=== PATIENT | male | born 1950 | race Caucasian/White ===

== ENCOUNTER 2018-04-24 11:39 | Emergency (ER) | payer MEDICARE, OTHER, SELFPAY ==
[2018-04-24 12:00] VITALS: BP 134/69; PULSE 89; RESP 17; TEMP 35.9; O2SAT 100
--- NOTE | 2018-04-24 12:10 | ED.FALL ---
HPI - Fall <Geetha Olea PA-C - Last Filed: 04/24/18 21:45> General Chief Complaint: Extremity Injury, Upper Stated Complaint: left side rib pain from overextension Time Seen by Provider: 04/24/18 12:10 Source: patient Mode of arrival: ambulatory Limitations: no limitations History of Present Illness HPI Narrative: This 67-year-old male complains of left sided rib pain after a twisting injury. He states that he was standing with 1 ft on the swim step of his boat and another on the day knee, when the boat moved and he wrenched his left side trying to grab the ladder and remain upright. He did not fall, states he just twisted awkwardly and felt discomfort in his ribs, especially if he coughs or sneezes. He denies any fall or any other injury. He denies dyspnea or wheeze. He requests x-rays because he is going on a month long trip soon and wants to know whether any fracture for sure Related Data Home Medications Medication Instructions Recorded Confirmed CoQ-10 200 mg PO DAILY 04/24/18 04/24/18 albuterol sulfate [ProAir HFA] 2 puff INHALATION Q4H PRN 04/24/18 04/24/18 amlodipine 10 mg PO DAILY 04/24/18 04/24/18 aspirin 81 mg PO DAILY 04/24/18 04/24/18 baclofen 20 mg PO QID 04/24/18 04/24/18 bupropion HCl 150 mg PO QAM 04/24/18 04/24/18 celecoxib [Celebrex] 100 mg PO QPM 04/24/18 04/24/18 cholecalciferol (vitamin D3) 1,000 unit PO DAILY 04/24/18 04/24/18 [Vitamin D3] citalopram 40 mg PO DAILY 04/24/18 04/24/18 cyanocobalamin (vitamin B-12) 250 mcg PO DAILY 04/24/18 04/24/18 [Vitamin B-12] rosuvastatin 10 mg PO DAILY 04/24/18 04/24/18 telmisartan 80 mg PO DAILY 04/24/18 04/24/18 Previous Rx's Medication Instructions Recorded lidocaine [Lidoderm] 2 patch TOP DAILY #30 each 04/24/18 oxycodone-acetaminophen [Percocet] 1 tab PO QID #10 tab 04/24/18 Allergies Allergy/AdvReac Type Severity Reaction Status Date / Time No Known Allergies Allergy Uncoded 05/21/17 11:48 Review of Systems <FADY Rodriguez Last Filed: 04/24/18 21:45> Review of Systems ROS Unobtainable: All systems reviewed & are unremarkable except as noted in HPI and below Exam <FADY Rodriguez Last Filed: 04/24/18 21:45> Narrative Exam Narrative: GENERAL APPEARANCE: Patient sitting comfortably, in no distress. HEENT: PERRL, EOMI, normal oropharynx NECK: Supple, no masses CHEST: Left anterior lateral ribs tender to palpation most at ribs 9 and 10 at the mid clavicular line, no sternal tenderness, no ecchymoses LUNGS: Clear to auscultation bilaterally. HEART: Rate and rhythm regular without murmur, normal S1 and S2, no S3 or S4. Initial Vital Signs Initial Vital Signs: Vital Signs Temperature 96.7 F L 04/24/18 12:00 Pulse Rate 89 04/24/18 12:00 Respiratory Rate 17 04/24/18 12:00 Blood Pressure 134/69 04/24/18 12:00 Pulse Oximetry 100 04/24/18 12:00 <Amalia Wood DO - Last Filed: 04/25/18 08:45> Initial Vital Signs Initial Vital Signs: Vital Signs Temperature 96.7 F L 04/24/18 12:00 Pulse Rate 89 04/24/18 12:00 Respiratory Rate 17 04/24/18 12:00 Blood Pressure 134/69 04/24/18 12:00 Pulse Oximetry 100 04/24/18 12:00 PFSH <FADY Rodriguez Last Filed: 04/24/18 21:45> Medical History Depression (Chronic) HTN (hypertension) (Chronic) Hyperlipidemia (Chronic) Osteoarthritis, multiple sites (Chronic) Surgical History S/p bilateral carpal tunnel release (Resolved) Status post right hip replacement (Resolved) Status post total knee replacement, right (Resolved) Social History Smoking Status: Never smoker Social History Smoking Status: Never smoker Course <FADY Rodriguez Last Filed: 04/24/18 21:45> Orders Ordered: Discontinued Medications Lidocaine (Lidoderm) 2 each TOP NOW ONE Stop: 04/24/18 12:27 Last Admin: 04/24/18 14:02 Dose: 2 each Oxycodone/Acetaminophen (Percocet 5/325) 2 tab PO NOW ONE Stop: 04/24/18 12:27 Last Admin: 04/24/18 13:35 Dose: 2 tab Vital Signs - 8 hr 04/24/18 14:10 Pulse Rate 78 Respiratory Rate 16 Blood Pressure 131/65 Pulse Oximetry 95 <Amalia Wood DO - Last Filed: 04/25/18 08:45> Orders Ordered: Discontinued Medications Lidocaine (Lidoderm) 2 each TOP NOW ONE Stop: 04/24/18 12:27 Last Admin: 04/24/18 14:02 Dose: 2 each Oxycodone/Acetaminophen (Percocet 5/325) 2 tab PO NOW ONE Stop: 04/24/18 12:27 Last Admin: 04/24/18 13:35 Dose: 2 tab Vital Signs - 8 hr 04/24/18 14:10 Pulse Rate 78 Respiratory Rate 16 Blood Pressure 131/65 Pulse Oximetry 95 MDM - Fall <Geetha Olea PA-C - Last Filed: 04/24/18 21:45> Imaging Data ribs: Radiologist's impression: [place] [address] XRay Report Signed Patient: Timi MoralesR#: [id number] : 9Acct:[id number] Age/Sex: 67 / MDate of Service: 04/24/18 Loc: ED Accession Number: [id number] Procedure: XR ribs LT min 3V w CXR1V Ordering Provider: Geetha Olea P.A-C PROCEDURE: XR RIBS LT MIN 3V W CXR1V INDICATIONS: pain after fall TECHNIQUE: 2 views of the left ribs were acquired, along with a single view chest. COMPARISON: None. FINDINGS: Surgical changes and devices: None. Bones and chest wall: There is a mildly displaced left seventh rib fracture. No suspicious bony lesions. Overlying soft tissues appear unremarkable. Lungs and pleura: There is left basilar atelectasis. No pleural effusions or pneumothorax. There is right hemidiaphragm eventration. Mediastinum: Mediastinal contours appear normal. Heart size is normal. IMPRESSION: Mildly displaced left seventh rib fracture. Dictated by: Chico Le M.D. on 04/24/2018 at 13:07 Approved by: Chico Le M.D. Discharge Plan Departure Patient Disposition: Home Clinical Impression: Left rib fracture Qualifiers: Encounter type: initial encounter Rib fracture type: single rib Fracture type: closed Qualified Code(s): S22.32XA - Fracture of one rib, left side, initial encounter for closed fracture Intercostal muscle strain Qualifiers: Encounter type: initial encounter Qualified Code(s): S29.011A - Strain of muscle and tendon of front wall of thorax, initial encounter Discharge Date/Time: 04/24/18 14:15 Interventions: ED Discharge Assessment Last Done: 04/24/18 14:10 Instructions: DI for Rib Fracture Activity Restrictions/Additional Instructions: Please return as we talked about if you have new shortness of breath or any acutely worsening symptoms. Otherwise, gentle activity such as walking is okay as you tolerate, avoid twisting and lifting and pressure on your ribs. Do the pillow hugging technique that we talked about several times daily and take breaths with your incentive spirometer that the respiratory therapist gave you. You can take the oxycodone/acetaminophen as needed but remember not to drive when taking it as it can make you sleepy. The dose I gave you is the higher dose with 10 mg of oxycodone in it, so remember that and do not take more than 1 tab at a time. Continue your Celebrex, but do not take other NSAIDs such as ibuprofen. You can also add the topical lidocaine patches for 12 hr daily. Please see your PCP on Friday to assess your progress and see whether you need to continue the oxycodone. Remember that the oxycodone/acetaminophen can make you constipated and to take a stool softener if you typically need 1 with this Prescriptions: New oxycodone-acetaminophen [Percocet] 10-325 mg tablet 1 tab PO QID Qty: 10 RF: 0 lidocaine [Lidoderm] 5 % adhesive patch,medicated 2 patch TOP DAILY Qty: 30 RF: 0 No Action citalopram 40 mg Tablet 40 mg PO DAILY RF: 0 cyanocobalamin (vitamin B-12) [Vitamin B-12] 250 mcg Tablet 250 mcg PO DAILY RF: 0 aspirin 81 mg Tablet,Delayed Release (Dr/Ec) 81 mg PO DAILY RF: 0 baclofen 20 mg Tablet 20 mg PO QID RF: 0 amlodipine 10 mg Tablet 10 mg PO DAILY RF: 0 telmisartan 80 mg Tablet 80 mg PO DAILY RF: 0 albuterol sulfate [ProAir HFA] 90 mcg/actuation Hfa Aerosol Inhaler 2 puff Inhalation Q4H PRN (Reason: Wheezing) RF: 0 celecoxib [Celebrex] 100 mg Capsule 100 mg PO QPM RF: 0 cholecalciferol (vitamin D3) [Vitamin D3] 1,000 unit Capsule 1,000 unit PO DAILY RF: 0 rosuvastatin 10 mg Tablet 10 mg PO DAILY RF: 0 bupropion HCl 150 mg Tablet Extended Release 24 Hr 150 mg PO QAM RF: 0 CoQ-10 200 mg PO DAILY RF: 0 Referrals: Ellen Mcgrath PA-C [Primary Care Provider] - <Amalia Wood DO - Last Filed: 04/25/18 08:45> Cosign ED Attending Cosignature Attestation: I was immediately available in the department for consultation. This documentation has been reviewed and I agree with assessment and plan. Supervised by Amalia Wood DO
--- NOTE | 2018-04-24 12:26 | DI.RAD.S_ITS ---
PROCEDURE: XR RIBS LT MIN 3V W CXR1V INDICATIONS: pain after fall TECHNIQUE: 2 views of the left ribs were acquired, along with a single view chest. COMPARISON: None. FINDINGS: Surgical changes and devices: None. Bones and chest wall: There is a mildly displaced left seventh rib fracture. No suspicious bony lesions. Overlying soft tissues appear unremarkable. Lungs and pleura: There is left basilar atelectasis. No pleural effusions or pneumothorax. There is right hemidiaphragm eventration. Mediastinum: Mediastinal contours appear normal. Heart size is normal. IMPRESSION: Mildly displaced left seventh rib fracture. Dictated by: Chico Le M.D. on 04/24/2018 at 13:07 Approved by: Chico Le M.D. on 04/24/2018 at 13:10
[2018-04-24] MEDS: OXYCODONE/ACETAMINOPHEN 5/325 TABLET 2 TAB PO (13:35)
[2018-04-24] MEDS: LIDOCAINE PATCH 1 EACH ADH..PATCH 2 EACH TOP (14:02)
[2018-04-24 14:10] VITALS: BP 131/65; PULSE 78; RESP 16; O2SAT 95
== END 2018-04-24 14:15 | disposition home or self-care (01) ==
PROVIDERS: Emergency Provider Internal Medicine; PCP Physician Assistant Medical
DX: S22.32XA Fracture of one rib, left side, initial encounter for closed fracture (principal); S29.011A Strain of muscle and tendon of front wall of thorax, initial encounter
CPT/HCPCS: 71101; 99282; 99283

== ENCOUNTER 2018-06-23 15:32 | Emergency (ER) | payer MEDICARE, OTHER, SELFPAY ==
[2018-06-23 15:41] VITALS: BP 108/63; PULSE 67; RESP 16; TEMP 36.5; O2SAT 95
--- NOTE | 2018-06-23 15:54 | DI.RAD.S_ITS ---
PROCEDURE: XR CHEST 1V INDICATIONS: chest pain TECHNIQUE: One view of the chest was acquired. COMPARISON: None. FINDINGS: Surgical changes and devices: None. Lungs and pleura: Pulmonary vascular congestion is seen. Mild pulmonary edema is also noted. No definite focal infiltrate. No pleural effusions or pneumothorax. Mediastinum: Mediastinal contours appear normal. Heart size is enlarged. Bones and chest wall: No suspicious bony lesions. Overlying soft tissues appear unremarkable. IMPRESSION: Cardiomegaly and congestion. No definite focal infiltrate. Dictated by: Owen Diallo M.D. on 06/23/2018 at 16:29 Approved by: Owen Diallo M.D. on 06/23/2018 at 16:29
[2018-06-23 16:22] LABS: Add Manual Diff / Slide Review NO; Basophils Absolute Auto 0 /uL (0-100); Basophils Percent Auto 0.5 % (0-2); Eosinophils Absolute Auto 100 /uL (0-450); Eosinophils Percent Auto 1.8 % (2-4); Hematocrit 38.7 % (41-53); Hemoglobin 12.9 g/dL (13.5-17.5); Lymphocytes Absolute Auto 1200 /uL (1100-4500); Lymphocytes Percent Auto 17.3 % (25-40); Mean Corpuscular HGB Conc 33.3 % (30-36); Mean Corpuscular Hemoglobin 30.9 PG (26-34); Mean Corpuscular Volume 92.6 fL (80-100); Monocytes Absolute Auto 500 /uL (0-900); Monocytes Percent Auto 6.7 % (3-14); Neutrophils Absolute Auto 5200 /uL (1500-7000); Neutrophils Percent Auto 73.7 % (50-75); Platelet Count 254 X10^3/uL (150-400); Red Blood Cell Count 4.18 X10^6/uL (4.5-5.9); Red Cell Distribution Width 13.9 % (11.6-14.8); White Blood Cell Count 7.1 X10^3/uL (4.5-11.0)
[2018-06-23 16:29] LABS: INR 1.1 (0.9-1.3); Prothrombin Time 12.4 SECONDS (10.1-12.7)
[2018-06-23 16:31] LABS: PTT Partial Thromboplastin Tim 32 SECONDS (26.4-36.2)
[2018-06-23 16:34] LABS: Alanine Aminotransferase 28 IU/L (21-72); Albumin 4.3 g/dL (3.5-5.0); Albumin Globulin Ratio 1.5 (1.0-2.8); Alkaline Phosphatase 134 U/L (38-126); Aspartate Aminotransferase 27 IU/L (17-59); Bilirubin Total 0.8 mg/dL (0.2-1.3); Blood Urea Nitrogen 24 mg/dL (9-20); Calcium 9.7 mg/dL (8.4-10.2); Carbon Dioxide 26 mmol/L (22-32); Chloride 102 mmol/L (98-107); Creatine Kinase 155 U/L (55-170); Estimated Glomerular Filt Rate > 60.0 mL/min (>60); Globulin 2.8 g/dL (1.7-4.1); Glucose 126 mg/dL (80-110); HEMOLYSIS < 15 (0-50); Lipase 53 U/L (23-300); Sodium 138 mmol/L (137-145); Total Protein 7.1 g/dL (6.3-8.2)
[2018-06-23 16:40] VITALS: BP 133/73; PULSE 69; RESP 19; O2SAT 98
[2018-06-23 16:45] LABS: Troponin I < 0.012 ng/mL (0.01-0.034)
[2018-06-23 16:49] LABS: CKMB % Relative Index 1.4 % (1.5-5.0); Creatine Kinase MB 2.22 ng/mL (<2.37)
[2018-06-23] MEDS: CYCLOBENZAPRINE 10 MG TABLET PO (17:07)
[2018-06-23 17:29] VITALS: BP 136/49; PULSE 66; RESP 15; O2SAT 99
--- NOTE | 2018-06-23 20:43 | ED_ITS ---
HPI - Chest Pain General Chief Complaint: Chest Pain Stated Complaint: RIB PAIN Time Seen by Provider: 06/23/18 16:34 Source: patient and family Mode of arrival: ambulatory Limitations: no limitations History of Present Illness HPI narrative: 67-year-old male nonsmoker presents with a chief complaint of sharp and stabbing left-sided chest wall pain that started while working in the [place] yesterday. He states he was bending and pulling a heavy object when he felt a sudden burning and tearing pain in his lateral ribs. His pain is sharp and stabbing and is worse with range of motion or deep breath. He denies any chest pressure, nausea, vomiting, diaphoresis, shortness of breath or worsening with exertion. He states he cracked a rib a few months ago and this feels very similar. MD complaint: chest pain Onset (ago): day(s) Duration: intermittent Onset: other Pain location: left chest Severity: moderate Quality: sharp Pain radiation: none Relieving factors: rest Exacerbating factors: inspiration and movement Treatments prior to arrival chest pain: none Related Data Home Medications Medication Instructions Recorded Confirmed CoQ-10 200 mg PO DAILY 04/24/18 04/24/18 albuterol sulfate [ProAir HFA] 2 puff INHALATION Q4H PRN 04/24/18 04/24/18 amlodipine 10 mg PO DAILY 04/24/18 04/24/18 aspirin 81 mg PO DAILY 04/24/18 04/24/18 baclofen 20 mg PO QID 04/24/18 04/24/18 bupropion HCl 150 mg PO QAM 04/24/18 04/24/18 celecoxib [Celebrex] 100 mg PO QPM 04/24/18 04/24/18 cholecalciferol (vitamin D3) 1,000 unit PO DAILY 04/24/18 04/24/18 [Vitamin D3] citalopram 40 mg PO DAILY 04/24/18 04/24/18 cyanocobalamin (vitamin B-12) 250 mcg PO DAILY 04/24/18 04/24/18 [Vitamin B-12] rosuvastatin 10 mg PO DAILY 04/24/18 04/24/18 telmisartan 80 mg PO DAILY 04/24/18 04/24/18 Previous Rx's Medication Instructions Recorded lidocaine [Lidoderm] 2 patch TOP DAILY #30 each 04/24/18 oxycodone-acetaminophen [Percocet] 1 tab PO QID #10 tab 04/24/18 cyclobenzaprine 10 mg PO TID PRN #14 tab 06/23/18 oxycodone 5 mg PO Q4-6H PRN #10 tab 06/23/18 Allergies Allergy/AdvReac Type Severity Reaction Status Date / Time No Known Allergies Allergy Uncoded 06/23/18 15:45 Review of Systems Constitutional Denies chills, Denies fever(s), Denies lethargy and Denies weakness Eyes Denies change in vision, Denies eye discharge, Denies irritation and Denies loss of vision ENT Ears, Nose, Mouth, and Throat: Denies change in voice, Denies neck pain and Denies sore throat Cardiovascular Reports chest pain, Denies irregular heart rhythm, Denies lightheadedness, Denies palpitations, Denies dyspnea, Denies dyspnea on exertion and Denies orthopnea Respiratory Denies cough, Denies dyspnea, Denies dyspnea on exertion and Denies wheezing Gastrointestinal Gastrointestinal: Denies abdominal pain, Denies change in bowel habits, Denies diarrhea, Denies nausea and Denies vomiting Genitourinary Denies hematuria, Denies flank pain, Denies urinary incontinence and Denies urinary urgency Musculoskeletal Denies neck pain Integumentary/Breasts Denies pruritus, Denies erythema, Denies rash and Denies wounds Neurologic Denies confusion, Denies loss of vision and Denies weakness Psychiatric Denies anxiety, Denies confusion, Denies depression, Denies homicidal ideation and Denies suicidal ideation Endocrine Denies palpitations Hematologic/Lymphatic Denies easy bruising Allergic/Immunologic Denies wheezing [facility] Medical History Depression (Chronic) HTN (hypertension) (Chronic) Hyperlipidemia (Chronic) Osteoarthritis, multiple sites (Chronic) Surgical History S/p bilateral carpal tunnel release (Resolved) Status post right hip replacement (Resolved) Status post total knee replacement, right (Resolved) Social History (Updated 04/24/18 @ 12:34 by Geetha Olea PA-C) Smoking Status: Never smoker Social History Smoking Status: Never smoker Exam Narrative Exam Narrative: GENERAL: 67-year-old male appears stated age, obviously uncomfortable and splinting his left-sided ribs HEAD: Atraumatic. Normocephalic. No temporal or scalp tenderness. EYES: Pupils equal round and reactive. Extraocular motions intact. No scleral icterus. No injection or drainage. ENT: Nose without bleeding, purulent drainage or septal hematoma. Throat without erythema, tonsillar hypertrophy or exudate. Uvula midline. Airway patent. NECK: Trachea midline. No JVD or lymphadenopathy. Supple, nontender, no meningeal signs. CARDIOVASCULAR: Regular rate and rhythm without murmurs, gallops, or rubs. Left anterior and lateral chest tender to palpation, no crepitance or abnormality noted other than reproducible pain RESPIRATORY: Clear to auscultation. Breath sounds equal bilaterally. No wheezes, rales, or rhonchi. GASTROINTESTINAL: Abdomen soft, non-tender, nondistended. No hepato- splenomegaly, or palpable masses. No guarding. EXTREMITIES: No clubbing, cyanosis, or edema. No joint tenderness, effusion, or edema noted. BACK: Nontender without deformity or crepitance. No flank tenderness. NEURO: AOx3. SKIN: No rash or erythema. Initial Vital Signs Initial Vital Signs: Vital Signs Temperature 97.7 F 06/23/18 15:41 Pulse Rate 67 06/23/18 15:41 Respiratory Rate 16 06/23/18 15:41 Blood Pressure 108/63 06/23/18 15:41 Pulse Oximetry 95 06/23/18 15:41 Scores HEART Score Heart Score history: Slightly Suspicious Heart Score EKG: Normal Heart Score Age: > or = 65 years old Heart Score risk factors: 1-2 risk factors Heart Score troponin: < or = to normal limit Heart Score Total: 3 Course Orders Ordered: ED Orders 06/23/18 15:54 XR chest 1V Stat EKG-12 Lead Stat 06/23/18 16:10 Complete Blood Count AUTO DIFF Stat Comprehensive Metabolic Panel Stat Lipase Stat Partial Thromboplastin Time Stat Prothrombin Time INR Stat Troponin & CK Cardiac Panel Stat Discontinued Medications Cyclobenzaprine HCl (Flexeril) 10 mg PO NOW ONE Stop: 06/23/18 16:46 Last Admin: 06/23/18 17:07 Dose: 10 mg Vital Signs - 8 hr 06/23/18 15:41 06/23/18 16:40 06/23/18 17:29 Temperature 97.7 F Pulse Rate 67 69 66 Respiratory Rate 16 19 15 Blood Pressure 108/63 Blood Pressure [Left Arm] 133/73 136/49 L Pulse Oximetry 95 98 99 MDM - Chest Pain Lab Data Result diagrams: 06/23/18 16:10 06/23/18 16:10 Lab Results 06/23/18 06/23/18 06/23/18 Range/Units 16:10 16:10 16:10 WBC 7.1 (4.5-11.0) X10^3/uL RBC 4.18 L (4.5-5.9) X10^6/uL Hgb 12.9 L (13.5-17.5) g/dL Hct 38.7 L (41-53) % MCV 92.6 (80-100) fL MCH 30.9 (26-34) PG MCHC 33.3 (30-36) % RDW 13.9 (11.6-14.8) % Plt Count 254 (150-400) X10^3/uL Neut % (Auto) 73.7 (50-75) % Lymph % (Auto) 17.3 L (25-40) % Rhea % (Auto) 6.7 (3-14) % Eos % (Auto) 1.8 L (2-4) % Baso % (Auto) 0.5 (0-2) % Neut # (Auto) 5200 (9720-5230) /uL Lymph # (Auto) 1200 (8500-5252) /uL Rhea # (Auto) 500 (0-900) /uL Eos # (Auto) 100 (0-450) /uL Baso # (Auto) 0 (0-100) /uL PT 12.4 (10.1-12.7) SECONDS INR 1.1 (0.9-1.3) APTT 32 (26.4-36.2) SECONDS Sodium 138 (137-145) mmol/L Potassium 4.0 (3.4-5.1) mmol/L Chloride 102 (98-107) mmol/L Carbon Dioxide 26 (22-32) mmol/L BUN 24 H (9-20) mg/dL Creatinine 1.00 (0.66-1.25) mg/dL Estimated GFR > 60.0 (>60) mL/min BUN/Creatinine Ratio 24.0 H (6-22) Glucose 126 H (80-110) mg/dL Calcium 9.7 (8.4-10.2) mg/dL Total Bilirubin 0.8 (0.2-1.3) mg/dL AST 27 (17-59) IU/L ALT 28 (21-72) IU/L Alkaline Phosphatase 134 H (38-126) U/L Total Creatine Kinase 155 (55-170) U/L CK-MB (CK-2) 2.22 (<2.37) ng/mL CK-MB (CK-2) Rel Index 1.4 L (1.5-5.0) % Troponin I < 0.012 (0.01-0.034) ng/mL Total Protein 7.1 (6.3-8.2) g/dL Albumin 4.3 (3.5-5.0) g/dL Globulin 2.8 (1.7-4.1) g/dL Albumin/Globulin Ratio 1.5 (1.0-2.8) Lipase 53 (23-300) U/L MDM Narrative Medical decision making narrative: Multiple causes of chest pain considered including NE, PE, pneumothorax, pneumonia, aortic dissection, and pleurisy. Patient reports no radiation, no diaphoresis, no provocation with exertion, and no vomiting. Pain is sharp, stabbing and completely reproducible along the left lateral ribs. EKG is nonischemic, troponin is normal Discharge Plan Departure Patient Disposition: Home Clinical Impression: Chest wall muscle strain Qualifiers: Encounter type: initial encounter Qualified Code(s): S29.011A - Strain of muscle and tendon of front wall of thorax, initial encounter Discharge Date/Time: 06/23/18 17:36 Interventions: ED Discharge Assessment Last Done: 06/23/18 17:30 Instructions: DI for Atypical Chest Pain Activity Restrictions/Additional Instructions: *You have been diagnosed with [atypical chest pain, chest wall strain] *What to do: *Take medications as directed *Follow up with your primary care provider in 2-3 days, call for an appointment. Let them know you were seen in the Emergency Department and that we ask that you be seen in follow up *Return to ER if you should have any new, worsening or concerning symptoms Prescriptions: New cyclobenzaprine 10 mg tablet 10 mg PO TID PRN (Reason: muscle spasm) Qty: 14 RF: 0 oxycodone 5 mg tablet 5 mg PO Q4-6H PRN (Reason: pain) Qty: 10 RF: 0 No Action citalopram 40 mg Tablet 40 mg PO DAILY RF: 0 cyanocobalamin (vitamin B-12) [Vitamin B-12] 250 mcg Tablet 250 mcg PO DAILY RF: 0 aspirin 81 mg Tablet,Delayed Release (Dr/Ec) 81 mg PO DAILY RF: 0 baclofen 20 mg Tablet 20 mg PO QID RF: 0 amlodipine 10 mg Tablet 10 mg PO DAILY RF: 0 telmisartan 80 mg Tablet 80 mg PO DAILY RF: 0 albuterol sulfate [ProAir HFA] 90 mcg/actuation Hfa Aerosol Inhaler 2 puff Inhalation Q4H PRN (Reason: Wheezing) RF: 0 celecoxib [Celebrex] 100 mg Capsule 100 mg PO QPM RF: 0 cholecalciferol (vitamin D3) [Vitamin D3] 1,000 unit Capsule 1,000 unit PO DAILY RF: 0 rosuvastatin 10 mg Tablet 10 mg PO DAILY RF: 0 bupropion HCl 150 mg Tablet Extended Release 24 Hr 150 mg PO QAM RF: 0 CoQ-10 200 mg PO DAILY RF: 0 oxycodone-acetaminophen [Percocet] 10-325 mg tablet 1 tab PO QID Qty: 10 RF: 0 lidocaine [Lidoderm] 5 % adhesive patch,medicated 2 patch TOP DAILY Qty: 30 RF: 0 Referrals: Ellen Mcgrath PA-C [Primary Care Provider] -
== END 2018-06-23 17:36 | disposition home or self-care (01) ==
PROVIDERS: Emergency Provider Emergency Medicine; PCP Physician Assistant Medical
DX: S29.011A Strain of muscle and tendon of front wall of thorax, initial encounter (principal); R07.9 Chest pain, unspecified
CPT/HCPCS: 36415; 36591; 71045; 80053; 82550; 82553; 83690; 84484; 85025; 85610; 85730; 93005; 93010; 99282; 99285

== ENCOUNTER 2018-08-27 15:10 | Emergency (ER) | payer MEDICARE, OTHER, SELFPAY ==
[2018-08-27 15:13] VITALS: BP 169/84; PULSE 88; RESP 15; TEMP 36.6; O2SAT 99; BMI 34.7
--- NOTE | 2018-08-27 17:17 | ED.BACK ---
HPI - Back Pain/Injury <Amalia Bronson, DIGITAL PROGRAM MANAGER-BC - Last Filed: 08/27/18 21:27> General Chief Complaint: Back Pain/Injury Stated Complaint: sent for abn MRI Time Seen by Provider: 08/27/18 17:07 Source: patient and family Mode of arrival: ambulatory Limitations: no limitations History of Present Illness HPI Narrative: The patient is a 68-year-old male never smoker presents with his for chief complaint of an abnormal MRI. 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 Devaughn Mcgrath took an MRI of his lower back. There was concern for cancer, so the patient presents to the emergency department. He denies any fevers nausea vomiting diarrhea. He denies any saddle anesthesia, incontinence of bowel or incontinence of bladder. He states that he has been having his lower back pain for over a month at this point time. He presents requesting scans to evaluate for cancer. Related Data Home Medications Medication Instructions Recorded Confirmed CoQ-10 200 mg PO DAILY 04/24/18 04/24/18 albuterol sulfate [ProAir HFA] 2 puff INHALATION Q4H PRN 04/24/18 04/24/18 amlodipine 10 mg PO DAILY 04/24/18 04/24/18 aspirin 81 mg PO DAILY 04/24/18 04/24/18 baclofen 20 mg PO QID 04/24/18 04/24/18 bupropion HCl 150 mg PO QAM 04/24/18 04/24/18 celecoxib [Celebrex] 100 mg PO QPM 04/24/18 04/24/18 cholecalciferol (vitamin D3) 1,000 unit PO DAILY 04/24/18 04/24/18 [Vitamin D3] citalopram 40 mg PO DAILY 04/24/18 04/24/18 cyanocobalamin (vitamin B-12) 250 mcg PO DAILY 04/24/18 04/24/18 [Vitamin B-12] rosuvastatin 10 mg PO DAILY 04/24/18 04/24/18 telmisartan 80 mg PO DAILY 04/24/18 08/27/18 Previous Rx's Medication Instructions Recorded lidocaine [Lidoderm] 2 patch TOP DAILY #30 each 04/24/18 oxycodone-acetaminophen [Percocet] 1 tab PO QID #10 tab 04/24/18 cyclobenzaprine 10 mg PO TID PRN #14 tab 06/23/18 oxycodone 5 mg PO Q4-6H PRN #10 tab 06/23/18 Allergies Allergy/AdvReac Type Severity Reaction Status Date / Time No Known Drug Allergies Allergy Verified 08/27/18 15:13 Review of Systems <JENNIFER Koenig - Last Filed: 08/27/18 21:27> Review of Systems GENERAL: Denies chills, fatigue, malaise, fever, sweats. HEENT: Denies sinus pain, ear pain, sore throat, difficulty swallowing, dizziness. RESPIRATORY: Denies dyspnea, cough, wheezing, hemoptysis, sputum. CARDIOVASCULAR: Denies chest pain, palpitations, orthopnea, edema, GASTROINTESTINAL: Denies nausea, vomiting, abdominal pain, diarrhea, constipation, melena. : Denies dysuria, frequency, incontinence, hematuria, urinary retention. MUSCULOSKELETAL: See HPI SKIN: Denies rash, skin lesions, or other NEUROLOGIC: Denies weakness, headache, numbness, change in speech, confusion, seizures, incoordination. PSYCHIATRIC: No concerning psychosocial issues. 12 point review of systems is negative except for those stated above PFSH <JENNIFER Koenig - Last Filed: 08/27/18 21:27> Medical History Depression (Chronic) HTN (hypertension) (Chronic) Hyperlipidemia (Chronic) Osteoarthritis, multiple sites (Chronic) Surgical History S/p bilateral carpal tunnel release (Resolved) Status post right hip replacement (Resolved) Status post total knee replacement, right (Resolved) Social History Smoking Status: Never smoker Social History Smoking Status: Never smoker Exam <JENNIFER Koenig - Last Filed: 08/27/18 21:27> Narrative Exam Narrative: GENERAL: Elderly male lying on stretcher in no acute distress HEAD: Atraumatic. Normocephalic. No temporal or scalp tenderness. EYES: Pupils equal round and reactive. Extraocular motions intact. No scleral icterus. No injection or drainage. ENT: Nose without bleeding, purulent drainage or septal hematoma. Throat without erythema, tonsillar hypertrophy or exudate. Uvula midline. Airway patent. NECK: Trachea midline. No JVD or lymphadenopathy. Supple, nontender, no meningeal signs. CARDIOVASCULAR: Regular rate and rhythm without murmurs, gallops, or rubs. RESPIRATORY: Clear to auscultation. Breath sounds equal bilaterally. No wheezes, rales, or rhonchi. No cough. No increased respiratory effort. No accessory muscle use. GASTROINTESTINAL: Abdomen soft, non-tender, nondistended. No hepato-splenomegaly, or palpable masses. No guarding. Active bowel sounds all 4 quadrants EXTREMITIES: No clubbing, cyanosis, or edema. No joint tenderness, effusion, or edema noted. BACK: No flank tenderness. Pain to palpation across lower back. NEURO: AOx3. SKIN: No rash or erythema. Initial Vital Signs Initial Vital Signs: Vital Signs Temperature 97.9 F 08/27/18 15:13 Pulse Rate 88 08/27/18 15:13 Respiratory Rate 15 08/27/18 15:13 Blood Pressure 169/84 H 08/27/18 15:13 Pulse Oximetry 99 08/27/18 15:13 <Jamil Read MD - Last Filed: 08/28/18 06:26> Initial Vital Signs Initial Vital Signs: Vital Signs Temperature 97.9 F 08/27/18 15:13 Pulse Rate 88 08/27/18 15:13 Respiratory Rate 15 08/27/18 15:13 Blood Pressure 169/84 H 08/27/18 15:13 Pulse Oximetry 99 08/27/18 15:13 Course <JAMARCUS Koenig-BC - Last Filed: 08/27/18 21:27> Course Narrative: I obtained MRI results from earlier today, which illustrate multiple expansile and heterogeneously hypointense and hyperintense lesions scattered through T12, sacrum bilateral iliac crest which were highly suggestive of extensive bony metastasis. Given the patient's imaging results, I spoke with cheyenne Charles who was on-call for the patient's primary care per Ellen KOROMA. She states she will urgently message the patient's PCPs nurse and have the patient follow up with his PCP tomorrow. Orders Ordered: Discontinued Medications Morphine Sulfate (Morphine) 4 mg IV NOW ONE Stop: 08/27/18 20:41 Last Admin: 08/27/18 21:08 Dose: 4 mg Vital Signs - 8 hr 08/27/18 15:13 08/27/18 18:57 Temperature 97.9 F Pulse Rate 88 81 Respiratory Rate 15 Blood Pressure 169/84 H Blood Pressure [Left Arm] 149/83 H Pulse Oximetry 99 97 <Jamil Read MD - Last Filed: 08/28/18 06:26> Orders Ordered: Discontinued Medications Morphine Sulfate (Morphine) 4 mg IV NOW ONE Stop: 08/27/18 20:41 Last Admin: 08/27/18 21:08 Dose: 4 mg Vital Signs - 8 hr 08/27/18 15:13 08/27/18 18:57 Temperature 97.9 F Pulse Rate 88 81 Respiratory Rate 15 Blood Pressure 169/84 H Blood Pressure [Left Arm] 149/83 H Pulse Oximetry 99 97 MDM - Back Pain/Injury <TERRY Koenig - Last Filed: 08/27/18 21:27> Lab Data Result diagrams: 08/27/18 17:20 08/27/18 17:20 Lab Results 08/27/18 08/27/18 Range/Units 17:20 17:20 WBC 7.1 (4.5-11.0) X10^3/uL RBC 3.94 L (4.5-5.9) X10^6/uL Hgb 12.0 L (13.5-17.5) g/dL Hct 36.4 L (41-53) % MCV 92.3 (80-100) fL MCH 30.5 (26-34) PG MCHC 33.0 (30-36) % RDW 14.5 (11.6-14.8) % Plt Count 263 (150-400) X10^3/uL Neut % (Auto) 81.6 H (50-75) % Lymph % (Auto) 10.3 L (25-40) % [place] % (Auto) 7.0 (3-14) % Eos % (Auto) 0.5 L (2-4) % Baso % (Auto) 0.6 (0-2) % Neut # (Auto) 5800 (8797-0148) /uL Lymph # (Auto) 700 L (2757-7595) /uL [place] # (Auto) 500 (0-900) /uL Eos # (Auto) 0 (0-450) /uL Baso # (Auto) 0 (0-100) /uL Sodium 136 L (137-145) mmol/L Potassium 4.0 (3.4-5.1) mmol/L Chloride 102 (98-107) mmol/L Carbon Dioxide 26 (22-32) mmol/L BUN 21 H (9-20) mg/dL Creatinine 1.00 (0.66-1.25) mg/dL Estimated GFR > 60.0 (>60) mL/min BUN/Creatinine Ratio 21.0 (6-22) Glucose 96 (80-110) mg/dL Calcium 9.3 (8.4-10.2) mg/dL Total Bilirubin 0.8 (0.2-1.3) mg/dL AST 21 (17-59) IU/L ALT 27 (21-72) IU/L Alkaline Phosphatase 166 H (38-126) U/L Total Protein 6.2 L (6.3-8.2) g/dL Albumin 3.5 (3.5-5.0) g/dL Globulin 2.7 (1.7-4.1) g/dL Albumin/Globulin Ratio 1.3 (1.0-2.8) Imaging Data CT chest abdomen pelvis: Radiologist's impression: Timi Morales 68 M [address] [place] [address] CT Scan Report Signed Patient: Timi MoralesR#: [id number] : 9Acct:[id number] Age/Sex: 68 / MDate of Service: 08/27/18 Loc: ED Accession Number: [id number] Procedure: CT chest abd pel w con [facility]ing [facility] CT CHEST ABD PEL W CON INDICATIONS: concern for mets on mri TECHNIQUE: After the administration of intravenous contrast, 5 mm thick sections acquired from the lung apices to the symphysis. 5 mm coronal and sagittal reformats were performed, with additional 7 mm MIP reformats through the lungs. For radiation dose reduction, the following was used: automated exposure control, adjustment of mA and/or kV according to patient size. COMPARISON: [facility], MR, MR LUMBAR SPINE WITHOUT CONTRAST, 08/27/2018, 8:01. FINDINGS: Image quality: Excellent. CHEST: Lungs and pleura: Multiple pulmonary nodules are identified within the left lung measuring up to 0.5 cm in greatest diameter. Mediastinum: There is bilateral hilar and mediastinal lymphadenopathy with the largest lymph node conglomerate measuring 2.8 x 4.3 cm in the right paratracheal region. There is calcified plaque of the coronary arteries and aorta. ABDOMEN: Solid organs: There is a 1.0 cm left intrahepatic cyst on axial image 57 of series 2. Gallbladder is unremarkable. The pancreas and spleen are unremarkable. There is a 2.8 cm right adrenal mass. There is a 7.4 x 6.6 x 8.8 cm enhancing soft tissue mass arising from the superior pole of the right kidney there is no hydronephrosis. There are multiple bilateral renal cysts with the largest measuring 7.9 cm and arising from the inferior pole of the left kidney. Peritoneum and bowel: Colonic diverticulosis without evidence of acute diverticulitis. Normal appendix seen on axial image 109 of series 2. Nodes and vessels: There is moderate calcified plaque of the abdominal aorta and branch vessels. There is diffuse retroperitoneal lymphadenopathy with the largest retroperitoneal lymph node measuring 2.7 x 2.5 cm anterior to the aorta and inferior vena cava on axial image 86 of series 2. PELVIS: Genitourinary: Bladder wall thickness is normal. Bones: Diffuse skeletal metastatic disease identified. There is a 7.9 cm expansile lytic lesion of the right scapula with pathologic fracture noted. There is a 3.3 cm lytic lesion within the left manubrium. There are multiple lesions with pathologic fracturing involving the left ribs. The largest expansile lesion involves the lateral left seventh rib and measures 5.9 x 4.0 cm in greatest diameter. Large expansile lesions are identified within the bilateral iliac wings, largest measuring 7.1 cm within the posterior right iliac wing. There is an expansile soft tissue lesion along the inferior endplate of T12, as seen on comparison MRI. There are moderate multilevel degenerative changes of the lumbar spine. No acute vertebral body fractures identified. There is a right total hip arthroplasty. IMPRESSION: 1. 8.8 cm enhancing mass arising from the superior pole of the right kidney, highly concerning for a renal cell carcinoma and possibly representing the primary malignancy. 2. Retroperitoneal, mediastinal, and bilateral hilar lymphadenopathy consistent with metastatic disease. 3. Diffuse skeletal metastatic disease, most prominently involving the bilateral ribs, right scapula, left manubrium, bilateral iliac wings, and T12 vertebral body. These metastatic lesions demonstrate soft tissue components that are expansile and result in cortical breakthrough/pathologic fractures, as seen with the right scapula, right iliac wing, and manubrium. Patient is at risk for additional pathologic fractures. 4. 2.8 cm right adrenal mass, most consistent with additional metastatic disease. Dictated by: Gabriel Whittington M.D. on 08/27/2018 at 19:46 Approved by: Gabriel Whittington M.D. on 08/27/2018 at 20:03 MDM Narrative Medical decision making narrative: The patient is a 68-year-old male who presents with a chief complaint of possible cancer related to an MRI earlier today. CT shows extensive likely metastatic disease. A follow-up plan was arranged, and I spoke with Erika Bullock, who is on-call for the patient's PCP. I discussed at length that he has a mass in his right kidney, right adrenal as well as lymphadenopathy and diffuse skeletal metastatic disease. I discussed that it is imperative that he follow up with his PCP for a an urgent consult for heme onc. The patient and his have no questions or concerns and state understanding. Discussed coming back to the ER for any acute concerns. <Jamil Read MD - Last Filed: 08/28/18 06:26> Lab Data Lab Results 08/27/18 08/27/18 Range/Units 17:20 17:20 WBC 7.1 (4.5-11.0) X10^3/uL RBC 3.94 L (4.5-5.9) X10^6/uL Hgb 12.0 L (13.5-17.5) g/dL Hct 36.4 L (41-53) % MCV 92.3 (80-100) fL MCH 30.5 (26-34) PG MCHC 33.0 (30-36) % RDW 14.5 (11.6-14.8) % Plt Count 263 (150-400) X10^3/uL Neut % (Auto) 81.6 H (50-75) % Lymph % (Auto) 10.3 L (25-40) % [place] % (Auto) 7.0 (3-14) % Eos % (Auto) 0.5 L (2-4) % Baso % (Auto) 0.6 (0-2) % Neut # (Auto) 5800 (8014-0928) /uL Lymph # (Auto) 700 L (6869-2265) /uL [place] # (Auto) 500 (0-900) /uL Eos # (Auto) 0 (0-450) /uL Baso # (Auto) 0 (0-100) /uL Sodium 136 L (137-145) mmol/L Potassium 4.0 (3.4-5.1) mmol/L Chloride 102 (98-107) mmol/L Carbon Dioxide 26 (22-32) mmol/L BUN 21 H (9-20) mg/dL Creatinine 1.00 (0.66-1.25) mg/dL Estimated GFR > 60.0 (>60) mL/min BUN/Creatinine Ratio 21.0 (6-22) Glucose 96 (80-110) mg/dL Calcium 9.3 (8.4-10.2) mg/dL Total Bilirubin 0.8 (0.2-1.3) mg/dL AST 21 (17-59) IU/L ALT 27 (21-72) IU/L Alkaline Phosphatase 166 H (38-126) U/L Total Protein 6.2 L (6.3-8.2) g/dL Albumin 3.5 (3.5-5.0) g/dL Globulin 2.7 (1.7-4.1) g/dL Albumin/Globulin Ratio 1.3 (1.0-2.8) Discharge Plan Departure Patient Disposition: Home Clinical Impression: Mass of kidney, Adrenal mass, right, Disease of skeletal system Discharge Date/Time: 08/27/18 21:51 Interventions: ED Discharge Assessment Last Done: 08/27/18 21:50 Activity Restrictions/Additional Instructions: Today we did a CT of your chest abdomen and pelvis due to concerning findings on your MRI. This CT shows a right kidney mass as well as a right adrenal mass. These are highly concerning for possible cancer and metastatic disease. There is also concern for metastatic disease to your skeleton. I spoke with Erika Bullock, who was on-call for Ellen Mcgrath. They would like you to call their office tomorrow. Please come back to the emergency department for any acute concerns. Prescriptions: No Action citalopram 40 mg Tablet 40 mg PO DAILY RF: 0 cyanocobalamin (vitamin B-12) [Vitamin B-12] 250 mcg Tablet 250 mcg PO DAILY RF: 0 aspirin 81 mg Tablet,Delayed Release (Dr/Ec) 81 mg PO DAILY RF: 0 baclofen 20 mg Tablet 20 mg PO QID RF: 0 amlodipine 10 mg Tablet 10 mg PO DAILY RF: 0 telmisartan 80 mg Tablet 80 mg PO DAILY RF: 0 albuterol sulfate [ProAir HFA] 90 mcg/actuation Hfa Aerosol Inhaler 2 puff Inhalation Q4H PRN (Reason: Wheezing) RF: 0 celecoxib [Celebrex] 100 mg Capsule 100 mg PO QPM RF: 0 cholecalciferol (vitamin D3) [Vitamin D3] 1,000 unit Capsule 1,000 unit PO DAILY RF: 0 rosuvastatin 10 mg Tablet 10 mg PO DAILY RF: 0 bupropion HCl 150 mg Tablet Extended Release 24 Hr 150 mg PO QAM RF: 0 CoQ-10 200 mg PO DAILY RF: 0 oxycodone-acetaminophen [Percocet] 10-325 mg tablet 1 tab PO QID Qty: 10 RF: 0 lidocaine [Lidoderm] 5 % adhesive patch,medicated 2 patch TOP DAILY Qty: 30 RF: 0 cyclobenzaprine 10 mg tablet 10 mg PO TID PRN (Reason: muscle spasm) Qty: 14 RF: 0 oxycodone 5 mg tablet 5 mg PO Q4-6H PRN (Reason: pain) Qty: 10 RF: 0 Referrals: Ellen Mcgrath PA-C [Primary Care Provider] - <Jamil Read MD - Last Filed: 08/28/18 06:26> [facility] I was present in the ER at the time this patient's care. I was available for consultation or to see the patient directly if needed. I agree with evaluation, the assessment and treatment plan.
[2018-08-27 17:26] LABS: Add Manual Diff / Slide Review NO; Basophils Absolute Auto 0 /uL (0-100); Basophils Percent Auto 0.6 % (0-2); Eosinophils Absolute Auto 0 /uL (0-450); Eosinophils Percent Auto 0.5 % (2-4); Hematocrit 36.4 % (41-53); Lymphocytes Absolute Auto 700 /uL (1100-4500); Lymphocytes Percent Auto 10.3 % (25-40); Mean Corpuscular Hemoglobin 30.5 PG (26-34); Mean Corpuscular Volume 92.3 fL (80-100); Monocytes Absolute Auto 500 /uL (0-900); Neutrophils Absolute Auto 5800 /uL (1500-7000); Neutrophils Percent Auto 81.6 % (50-75); Platelet Count 263 X10^3/uL (150-400); Red Blood Cell Count 3.94 X10^6/uL (4.5-5.9); Red Cell Distribution Width 14.5 % (11.6-14.8); White Blood Cell Count 7.1 X10^3/uL (4.5-11.0)
[2018-08-27 17:37] LABS: Alanine Aminotransferase 27 IU/L (21-72); Albumin 3.5 g/dL (3.5-5.0); Albumin Globulin Ratio 1.3 (1.0-2.8); Alkaline Phosphatase 166 U/L (38-126); Aspartate Aminotransferase 21 IU/L (17-59); Bilirubin Total 0.8 mg/dL (0.2-1.3); Blood Urea Nitrogen 21 mg/dL (9-20); Calcium 9.3 mg/dL (8.4-10.2); Carbon Dioxide 26 mmol/L (22-32); Chloride 102 mmol/L (98-107); Estimated Glomerular Filt Rate > 60.0 mL/min (>60); Globulin 2.7 g/dL (1.7-4.1); Glucose 96 mg/dL (80-110); HEMOLYSIS < 15 (0-50); Sodium 136 mmol/L (137-145); Total Protein 6.2 g/dL (6.3-8.2)
--- NOTE | 2018-08-27 17:40 | DI.CT.S_ITS ---
PROCEDURE: CT CHEST ABD PEL W CON INDICATIONS: concern for mets on mri TECHNIQUE: After the administration of intravenous contrast, 5 mm thick sections acquired from the lung apices to the symphysis. 5 mm coronal and sagittal reformats were performed, with additional 7 mm MIP reformats through the lungs. For radiation dose reduction, the following was used: automated exposure control, adjustment of mA and/or kV according to patient size. COMPARISON: [facility], MR, MR LUMBAR SPINE WITHOUT CONTRAST, 08/27/2018, 8:01. FINDINGS: Image quality: Excellent. CHEST: Lungs and pleura: Multiple pulmonary nodules are identified within the left lung measuring up to 0.5 cm in greatest diameter. Mediastinum: There is bilateral hilar and mediastinal lymphadenopathy with the largest lymph node conglomerate measuring 2.8 x 4.3 cm in the right paratracheal region. There is calcified plaque of the coronary arteries and aorta. ABDOMEN: Solid organs: There is a 1.0 cm left intrahepatic cyst on axial image 57 of series 2. Gallbladder is unremarkable. The pancreas and spleen are unremarkable. There is a 2.8 cm right adrenal mass. There is a 7.4 x 6.6 x 8.8 cm enhancing soft tissue mass arising from the superior pole of the right kidney there is no hydronephrosis. There are multiple bilateral renal cysts with the largest measuring 7.9 cm and arising from the inferior pole of the left kidney. Peritoneum and bowel: Colonic diverticulosis without evidence of acute diverticulitis. Normal appendix seen on axial image 109 of series 2. Nodes and vessels: There is moderate calcified plaque of the abdominal aorta and branch vessels. There is diffuse retroperitoneal lymphadenopathy with the largest retroperitoneal lymph node measuring 2.7 x 2.5 cm anterior to the aorta and inferior vena cava on axial image 86 of series 2. PELVIS: Genitourinary: Bladder wall thickness is normal. Bones: Diffuse skeletal metastatic disease identified. There is a 7.9 cm expansile lytic lesion of the right scapula with pathologic fracture noted. There is a 3.3 cm lytic lesion within the left manubrium. There are multiple lesions with pathologic fracturing involving the left ribs. The largest expansile lesion involves the lateral left seventh rib and measures 5.9 x 4.0 cm in greatest diameter. Large expansile lesions are identified within the bilateral iliac wings, largest measuring 7.1 cm within the posterior right iliac wing. There is an expansile soft tissue lesion along the inferior endplate of T12, as seen on comparison MRI. There are moderate multilevel degenerative changes of the lumbar spine. No acute vertebral body fractures identified. There is a right total hip arthroplasty. IMPRESSION: 1. 8.8 cm enhancing mass arising from the superior pole of the right kidney, highly concerning for a renal cell carcinoma and possibly representing the primary malignancy. 2. Retroperitoneal, mediastinal, and bilateral hilar lymphadenopathy consistent with metastatic disease. 3. Diffuse skeletal metastatic disease, most prominently involving the bilateral ribs, right scapula, left manubrium, bilateral iliac wings, and T12 vertebral body. These metastatic lesions demonstrate soft tissue components that are expansile and result in cortical breakthrough/pathologic fractures, as seen with the right scapula, right iliac wing, and manubrium. Patient is at risk for additional pathologic fractures. 4. 2.8 cm right adrenal mass, most consistent with additional metastatic disease. Dictated by: Gabriel Whittington M.D. on 08/27/2018 at 19:46 Approved by: Gabriel Whittington M.D. on 08/27/2018 at 20:03
[2018-08-27 18:57] VITALS: BP 149/83; PULSE 81; O2SAT 97
[2018-08-27] MEDS: MORPHINE 4 MG/ML INJ IV (21:08)
[2018-08-27 21:39] VITALS: BP 134/70; PULSE 74; RESP 16; O2SAT 94
== END 2018-08-27 21:51 | disposition home or self-care (01) ==
PROVIDERS: Emergency Provider Nurse Practitioner Family; Family Provider Physician Assistant Medical; PCP Physician Assistant Medical
DX: N28.89 Other specified disorders of kidney and ureter (principal); E27.8 Other specified disorders of adrenal gland; M89.9 Disorder of bone, unspecified
CPT/HCPCS: 36591; 71260; 74177; 80053; 85025; 96374; 99282; 99284; J2270; Q9967

== ENCOUNTER 2018-10-02 15:14 | Emergency (ER) | payer MEDICARE, OTHER, SELFPAY ==
[2018-10-02 15:28] VITALS: BP 120/55; PULSE 76; RESP 16; TEMP 36.3; O2SAT 96; BMI 35.0
--- NOTE | 2018-10-02 17:01 | ED_ITS ---
HPI - Anxiety General Chief Complaint: Anxiety Stated Complaint: LIGHT HEADENESS/ANXIETY/CLAUSTROPHOBIA Time Seen by Provider: 10/02/18 16:42 Source: patient Mode of arrival: ambulatory Limitations: no limitations History of Present Illness HPI narrative: 68-year-old male comes to the emergency department with complaint of anxiety. Patient was getting his radiation treatment. This is for renal mass along with several metastases. This includes his abdomen and his chest. Today when they were moving the radiation from his abdomen up to his chest he got very anxious and felt very claustrophobic. She has had problems with claustrophobia the past. 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 He states he does not tolerate closed MRI's, but will tolerate open MRIs. Today he had to stop the last portion of his radiation a little bit early case he just was too anxious. Afterwards he was able to calm down but it took a while so he had come here to be evaluated because he did not feel like he was coming down initially. He feels much better now he feels calm. Patient does not normally take anything for anxiety or claustrophobia. He now does have 1 additional treatment because he ended this 1 early. He denies any other symptoms today. Related Data Home Medications Medication Instructions Recorded Confirmed CoQ-10 200 mg PO DAILY 04/24/18 04/24/18 albuterol sulfate [ProAir HFA] 2 puff INHALATION Q4H PRN 04/24/18 04/24/18 amlodipine 10 mg PO DAILY 04/24/18 04/24/18 aspirin 81 mg PO DAILY 04/24/18 04/24/18 baclofen 20 mg PO QID 04/24/18 04/24/18 bupropion HCl 150 mg PO QAM 04/24/18 04/24/18 celecoxib [Celebrex] 100 mg PO QPM 04/24/18 04/24/18 cholecalciferol (vitamin D3) 1,000 unit PO DAILY 04/24/18 04/24/18 [Vitamin D3] citalopram 40 mg PO DAILY 04/24/18 04/24/18 cyanocobalamin (vitamin B-12) 250 mcg PO DAILY 04/24/18 04/24/18 [Vitamin B-12] rosuvastatin 10 mg PO DAILY 04/24/18 04/24/18 telmisartan 80 mg PO DAILY 04/24/18 10/02/18 fentanyl 50 mcg TOPICAL Q3DX5 10/02/18 10/02/18 oxycodone 10 mg PO Q4H PRN 10/02/18 10/02/18 Previous Rx's Medication Instructions Recorded lidocaine [Lidoderm] 2 patch TOP DAILY #30 each 04/24/18 cyclobenzaprine 10 mg PO TID PRN #14 tab 06/23/18 alprazolam [Xanax] 0.5 mg PO DAILY PRN #2 tab 10/02/18 Allergies Allergy/AdvReac Type Severity Reaction Status Date / Time No Known Drug Allergies Allergy Verified 10/02/18 15:28 Review of Systems Review of Systems ROS Unobtainable: All systems reviewed & are unremarkable except as noted in HPI and below Psychiatric Reports anxiety PFSH Medical History Depression (Chronic) HTN (hypertension) (Chronic) Hyperlipidemia (Chronic) Osteoarthritis, multiple sites (Chronic) Surgical History S/p bilateral carpal tunnel release (Resolved) Status post right hip replacement (Resolved) Status post total knee replacement, right (Resolved) Social History Smoking Status: Never smoker Social History Smoking Status: Never smoker Exam Narrative Exam Narrative: GENERAL: Alert and oriented x three, well-nourished, well- appearing male in no acute distress. HEENT: Head normocephalic, atraumatic, EOMI, pupils reactive, face symmetric, moist mucous membranes NECK: Supple, full range of motion CARDIOVASCULAR: Regular rate and rhythm without murmurs, rubs or gallops. RESPIRATORY: Breath sounds equal bilaterally, no wheezes rales or rhonchi. ABDOMEN: Soft, nontender. Normoactive bowel sounds all 4 quadrants. No guarding or rebound, rigidity, no mass EXTREMITIES: Normal range of motion, no clubbing or edema. Neurovascularly intact. NEUROLOGICAL: Cranial nerves II through XII grossly intact. Full range of motion of extremities. Normal gait. SKIN: Warm, dry, no petechiae, no rashes or lesions. PSYCH: Anxiety. Initial Vital Signs Initial Vital Signs: Vital Signs Temperature 97.4 F L 10/02/18 15:28 Pulse Rate 76 10/02/18 15:28 Respiratory Rate 16 10/02/18 15:28 Blood Pressure 120/55 L 10/02/18 15:28 Pulse Oximetry 96 10/02/18 15:28 Course Vital Signs - 8 hr 10/02/18 15:28 Temperature 97.4 F L Pulse Rate 76 Respiratory Rate 16 Blood Pressure 120/55 L Pulse Oximetry 96 MDM - Anxiety MDM Narrative Medical decision making narrative: Patient describes an episode of claustrophobia which he states he can normally control but today when they were performing his radiation treatment he states the staff was very jerky and seemed very out of sorts which made him more anxious and he was unable to complete it. Patient I discussed possibly giving him 1 or 2 tablets of anti anxiety medication to take before his next radiation treatment should be his last 1 so that he can complete this. He felt comfortable with this plan. He does take narcotics and medications chronically for pain but we discussed if he does not change those medications and takes only low-dose he should be fine, he is aware that he is not supposed to drive perform any hazards activities. Patient's is in the room and states that she can drive him. Patient feels very comfortable with this plan and feels comfortable returning home at this time. Discharge Plan Departure Patient Disposition: Home Clinical Impression: Claustrophobia Discharge Date/Time: 10/02/18 17:07 Interventions: ED Discharge Assessment Last Done: 10/02/18 17:07 Instructions: Claustrophobia Activity Restrictions/Additional Instructions: Follow up with your physician if you continue to have symptoms. There are options for chronic anxiety medication. Take medication as prescribed approximately 20 minutes prior to radiation. This medication can make you sleepy do not drive, perform hazardous activities or make any major decisions while taking it. You may continue your home medications as prescribed but do not increase your pain medications while taking this medication as they can interact and cause increased sedation. Return to the emergency department if you are having worsening symptoms, lightheadedness, passing out, persistent vomiting, sweating, new chest pain, shortness of breath or other new or concerning symptoms. Prescriptions: New alprazolam [Xanax] 0.5 mg tablet 0.5 mg PO DAILY PRN (Reason: anxiety) Qty: 2 RF: 0 No Action citalopram 40 mg Tablet 40 mg PO DAILY RF: 0 cyanocobalamin (vitamin B-12) [Vitamin B-12] 250 mcg Tablet 250 mcg PO DAILY RF: 0 aspirin 81 mg Tablet,Delayed Release (Dr/Ec) 81 mg PO DAILY RF: 0 baclofen 20 mg Tablet 20 mg PO QID RF: 0 amlodipine 10 mg Tablet 10 mg PO DAILY RF: 0 telmisartan 80 mg Tablet 80 mg PO DAILY RF: 0 albuterol sulfate [ProAir HFA] 90 mcg/actuation Hfa Aerosol Inhaler 2 puff Inhalation Q4H PRN (Reason: Wheezing) RF: 0 celecoxib [Celebrex] 100 mg Capsule 100 mg PO QPM RF: 0 cholecalciferol (vitamin D3) [Vitamin D3] 1,000 unit Capsule 1,000 unit PO DAILY RF: 0 rosuvastatin 10 mg Tablet 10 mg PO DAILY RF: 0 bupropion HCl 150 mg Tablet Extended Release 24 Hr 150 mg PO QAM RF: 0 CoQ-10 200 mg PO DAILY RF: 0 lidocaine [Lidoderm] 5 % adhesive patch,medicated 2 patch TOP DAILY Qty: 30 RF: 0 cyclobenzaprine 10 mg tablet 10 mg PO TID PRN (Reason: muscle spasm) Qty: 14 RF: 0 oxycodone 5 mg tablet 10 mg PO Q4H PRN (Reason: pain) RF: 0 fentanyl 50 mcg/hr patch 72 hour 50 mcg topical Q3DX5 RF: 0 Referrals: Ellen Mcgrath PA-C [Primary Care Provider] -
--- NOTE | 2018-10-02 17:06 | PC.NURSE ---
Patient had severe anxiety while in radiation. brought himself to ER. By time of evaluation patient calm.
== END 2018-10-02 17:07 | disposition home or self-care (01) ==
PROVIDERS: Emergency Provider Emergency Medicine; Family Provider Physician Assistant Medical; PCP Physician Assistant Medical
DX: F40.240 Claustrophobia (principal)
CPT/HCPCS: 99282